=== PATIENT | female | born 1980 | race American Indian/Alaskan Native ===

== ENCOUNTER 2017-09-15 16:32 | Outpatient (CLI) | payer OTHER | END 2017-09-15 18:10 | disposition home or self-care (01) | LOC: NST 16:32 | DX: Z34.83 Encounter for supervision of other normal pregnancy, third trimester (principal) ==

== ENCOUNTER 2017-09-16 12:29 | Inpatient (IN) | payer OTHER ==
[~2017-09-16] VITALS: Ht 147.3 cm; Wt 2.3 kg
[2017-09-26] MEDS ORDERED: NIFE60TA3 PO (02:41)
[2017-09-26] MEDS ORDERED: PRENATAL TABLE1 EAC1 PO (02:42)
== END 2017-09-29 10:14 | disposition home or self-care (01) | DRG 766 ==
LOC: LDR 09-26 02:01 → O/R 09-26 10:04 → SURG-SUITE 09-26 11:55 → OB/GYN 10-08 12:25
PROVIDERS: Obstetrics & Gynecology Maternal & Fetal Medicine
PROC: 0UT70ZZ Resection of Bilateral Fallopian Tubes, Open Approach (ICD-10-PCS; 2017-09-26)
PROC: 4A1HXCZ Monitoring of Products of Conception, Cardiac Rate, External Approach (ICD-10-PCS; 2017-09-26)
PROC: 4A033R1 Measurement of Arterial Saturation, Peripheral, Percutaneous Approach (ICD-10-PCS; 2017-09-26)
PROC: 10D00Z1 Extraction of Products of Conception, Low, Open Approach (ICD-10-PCS; principal; 2017-09-26 12:45)
DX: O34.211 Maternal care for low transverse scar from previous cesarean delivery (principal); O69.81X0 Labor and delivery complicated by cord around neck, without compression, not applicable or unspecified; Z30.2 Encounter for sterilization; Z64.1 Problems related to multiparity; Z37.0 Single live birth; Z3A.37 37 weeks gestation of pregnancy

== ENCOUNTER 2017-09-22 10:33 | Outpatient (CLI) | payer OTHER | END 2017-09-22 11:23 | disposition home or self-care (01) | LOC: NST 10:33 | DX: Z34.83 Encounter for supervision of other normal pregnancy, third trimester (principal); Z3A.37 37 weeks gestation of pregnancy ==

== ENCOUNTER 2017-09-25 13:01 | Outpatient (CLI) | payer OTHER ==
[2017-09-26] MEDS ORDERED: NIFE60TA3 PO (02:41)
[2017-09-26] MEDS ORDERED: PRENATAL TABLE1 EAC1 PO (02:42)
== END 2017-09-25 15:17 | disposition home or self-care (01) ==
LOC: OBS/DEL 13:01
DX: O47.1 False labor at or after 37 completed weeks of gestation (principal)